=== PATIENT | female | born 1960 | race Caucasian/White ===

== ENCOUNTER 2021-11-11 13:18 | Inpatient (IN) ==
[2021-11-11] MEDS ORDERED: Midazolam 5 mg/5 ml VIAL 1 mg/ml 5 ml VIAL (5 mg) ONE (13:44)
[2021-11-11] MEDS ORDERED: fentaNYL 100 mcg/2 ml 50 MCG/ML VIAL ONE ×3 (13:44→16:40)
[2021-11-11] MEDS ORDERED: Heparin - STEMI 5,000 UNITS/ML 1 ml VIAL IV ONE ×2 (13:44→13:45)
[2021-11-11] MEDS ORDERED: Lidocaine 1% MPF 5 ML VIAL ONE (13:45)
[2021-11-11] MEDS ORDERED: niCARdipine 0.1MG/ML IVPREMIX 20 MG/200 ML BAG IV ONE (13:45)
[2021-11-11] MEDS ORDERED: nitroGLYCERIN DRIP 25,000 MCG/250 ML BTL ONE ×2 (13:45→14:02)
[2021-11-11] MEDS ORDERED: Heparin 1,000 UNIT/ML 10 ml (10,000 UNITS) CATHLAB/DIALYSIS ONE (13:45)
[2021-11-11] MEDS ORDERED: Iohexol 350 (CONTRAST) 200 ML MDV IV ONE ×3 (13:45→16:01)
[2021-11-11] MEDS ORDERED: Heparin 2 UNITS/ML 1000 mls 2,000 ML IV ONE (13:45)
[2021-11-11] MEDS ORDERED: NS 0.9% 1000 ml BAG 1,000 ML IV ONE (13:56)
[2021-11-11] MEDS ORDERED: nitroGLYCERIN DRIP 25,000 MCG/250 ML BTL IV SCH (14:00)
[2021-11-11 14:03] LABS: ABS Basophils 0.1 10^3/ul (0-0.2); ABS Eosinophils 0.2 10^3/ul (0-0.6); ABS Lymphocytes 2.3 10^3/ul (1.0-4.8); ABS Monocytes 0.9 10^3/ul (0-0.8); ABS Neutrophils 7.7 10^3/ul (1.5-7.7); Eosinophil % 1.7 %; Hematocrit 41 % (35-47); Hemoglobin 14.1 g/dL (12.0-16.0); Lymphocyte % 20.7 %; Mean Corpuscular HGB Conc 34 g/dL (31-36); Mean Corpuscular Hemoglobin 32 pg (27-31); Mean Corpuscular Volume 95 fL (80-97); Mean Platelet Volume 7.9 fL (7.4-10.4); Platelet Count 337 10^3/uL (150-450); Red Blood Count 4.34 10^6 /uL (3.70-4.87); Red Cell Distribution Width 15 % (10-15); White Blood Count 11.2 10^3/uL (3.5-10.8)
[2021-11-11 14:24] LABS: ALT 34 U/L (7-52); AST 123 U/L (13-39); Albumin 4.4 g/dL (3.2-5.2); Albumin/Globulin Ratio 1.7 (1-3); Alkaline Phosphatase 90 U/L (35-149); Anion Gap 9 mmol/L (2-11); Blood Urea Nitrogen 9 mg/dL (6-24); CO2 Carbon Dioxide 25 mmol/L (22-32); Calcium 9.5 mg/dL (8.6-10.3); Chloride 103 mmol/L (101-111); Globulin 2.6 g/dL (2-4); Glucose 100 mg/dL (70-100); LDL Cholesterol Direct 172 mg/dL; Potassium 4.1 mmol/L (3.5-5.0); Sodium 137 mmol/L (135-145); eGFR CKD-EPI 101.8 (>60)
[2021-11-11 14:29] LABS: High Sens Troponin Baseline > 24000 pg/mL (<15)
[2021-11-11] MEDS ORDERED: Perflutren Lipid Microsphere 3 ML VIAL ONE (14:33)
[2021-11-11 14:38] LABS: Activated Partial Thrombo Time 42.2 seconds (26.0-38.0); INR 1.05 (0.86-1.15)
[2021-11-11] MEDS ORDERED: Heparin DRIP 25,000 UNITS BAG 25,000 UNITS/500 ML BAG IV SCH (15:00)
[2021-11-11] MEDS ORDERED: Heparin 5000 UNITS/ML 1 mL VIAL IV SCH (15:00)
[2021-11-11 15:19] LABS: High Sensitivity Troponin 1 Hr > 24000 pg/mL (<15)
[2021-11-11] MEDS ORDERED: Heparin 2 UNITS/ML 1000 mls 1,000 ML IV ONE (15:51)
[2021-11-11] MEDS ORDERED: Metoprolol Tartrate 5 mg VIAL 5 ml VIAL (1 mg/ml) ONE (16:04)
[2021-11-11] MEDS ORDERED: Prasugrel 10 mg TAB (NF) ONE (16:50)
[2021-11-11] MEDS ORDERED: Ondansetron 4 mg VIAL 2 MG/ML 2 ml VIAL IV PRN (16:55)
[2021-11-11] MEDS: Nicotine PATCH 21 MG/24 HR PATCH TRANSDERM SCH (18:46)
[2021-11-11] MEDS ORDERED: Eptifibatide IV (Load dose) 2 MG/ML 10 ml VIAL IV ONE (19:54)
[2021-11-12 03:34] LABS: ABS Eosinophils 0.2 10^3/ul (0-0.6); ABS Lymphocytes 1.9 10^3/ul (1.0-4.8); ABS Monocytes 0.9 10^3/ul (0-0.8); ABS Neutrophils 5.5 10^3/ul (1.5-7.7); Eosinophil % 1.9 %; Hematocrit 36 % (35-47); Hemoglobin 12.2 g/dL (12.0-16.0); Lymphocyte % 22.7 %; Mean Corpuscular HGB Conc 34 g/dL (31-36); Mean Corpuscular Hemoglobin 32 pg (27-31); Mean Corpuscular Volume 94 fL (80-97); Mean Platelet Volume 7.7 fL (7.4-10.4); Platelet Count 294 10^3/uL (150-450); Red Blood Count 3.81 10^6 /uL (3.70-4.87); Red Cell Distribution Width 15 % (10-15); White Blood Count 8.5 10^3/uL (3.5-10.8)
[2021-11-12 04:11] LABS: Albumin 3.5 g/dL (3.2-5.2); Calcium 8.6 mg/dL (8.6-10.3); Magnesium 1.9 mg/dL (1.9-2.7); Potassium 3.8 mmol/L (3.5-5.0); Total Bilirubin 0.6 mg/dL (0.2-1.0)
[2021-11-12 04:17] LABS: Albumin/Globulin Ratio 1.6 (1-3); Globulin 2.2 g/dL (2-4); HDL Cholesterol 41.7 mg/dL; Total Protein 5.7 g/dL (6.4-8.9); eGFR CKD-EPI 105.5 (>60)
[2021-11-12] MEDS ORDERED: KCL 20 MEQ/100 ML IVPREMIX 20 MEQ/100 ML BAG IV ONE (04:45)
[2021-11-12] MEDS ORDERED: Magnesium Sulfate 2 gm BAG 2 GM/50 ML BAG IVPB ONE (04:45)
[2021-11-12] MEDS ORDERED: Potassium Chlor 20 meq TAB.ER PO ONE (05:11)
[2021-11-12] MEDS ORDERED: Nicotine PATCH 21 MG/24 HR PATCH TRANSDERM SCH (08:00)
[2021-11-12] MEDS: Nicotine PATCH 21 MG/24 HR PATCH TRANSDERM SCH (08:12)
[2021-11-12] MEDS ORDERED: Fluticasone-Salmeterol 250-50 DISKUS NF INH SCH (09:00)
[2021-11-12] MEDS ORDERED: CMCS: Prasugrel 10 mg TAB (NF) PO SCH (09:00)
[2021-11-12] MEDS ORDERED: Albuterol HFA INHALER 8 gm MDI INH PRN (09:30)
[2021-11-12] MEDS: Tiotropium Brom/Olodaterol MDI INH SCH (12:16)
[2021-11-12] MEDS ORDERED: Enoxaparin 40 MG/0.4 ML SYR SUBCUT SCH (14:00)
[2021-11-12] MEDS ORDERED: Polyethylene Glycol 3350 17 GM PACKET PO PRN (15:47)
[2021-11-13 04:51] LABS: ABS Basophils 0.1 10^3/ul (0-0.2); ABS Eosinophils 0.2 10^3/ul (0-0.6); ABS Lymphocytes 2.6 10^3/ul (1.0-4.8); ABS Monocytes 1.1 10^3/ul (0-0.8); ABS Neutrophils 3.6 10^3/ul (1.5-7.7); Eosinophil % 2.9 %; Hematocrit 37 % (35-47); Hemoglobin 12.8 g/dL (12.0-16.0); Lymphocyte % 34.7 %; Mean Corpuscular HGB Conc 34 g/dL (31-36); Mean Corpuscular Hemoglobin 32 pg (27-31); Mean Corpuscular Volume 95 fL (80-97); Mean Platelet Volume 7.8 fL (7.4-10.4); Nucleated Red Blood Cells % 0.1; Platelet Count 262 10^3/uL (150-450); Red Blood Count 3.95 10^6 /uL (3.70-4.87); Red Cell Distribution Width 15 % (10-15); White Blood Count 7.5 10^3/uL (3.5-10.8)
[2021-11-13 05:12] LABS: Calcium 8.6 mg/dL (8.6-10.3); Magnesium 2.1 mg/dL (1.9-2.7); Potassium 4.7 mmol/L (3.5-5.0)
[2021-11-13 07:43] VITALS: BP 149/68
[2021-11-13] MEDS ORDERED: Nicotine PATCH 21 MG/24 HR PATCH TRANSDERM SCH (08:00)
[2021-11-13] MEDS: Tiotropium Brom/Olodaterol MDI INH SCH (08:01)
== END 2021-11-13 11:00 | disposition home or self-care (01) | DRG 246 ==
LOC: ED 13:18 → ICU 14:58 → EDHOLD 16:55 → ICU 17:45 → MEDTELE 11-12 14:35
PROVIDERS: ADMIT Internal Medicine; ATTEND Internal Medicine

== ENCOUNTER 2023-11-25 11:37 | Inpatient (IN) ==
[2023-11-25 12:04] LABS: ABS Basophils 0.1 10^3/uL (0.0-0.1); ABS Eosinophils 0.3 10^3/uL (0.0-0.5); ABS Lymphocytes 2.3 10^3/uL (1.0-4.8); ABS Monocytes 0.6 10^3/uL (0.0-0.9); ABS Neutrophils 5.5 10^3/uL (1.5-7.6); ABS Nucleated RBC 0.01 10^3/ul; Eosinophil % 3.8 %; Hematocrit 38.5 % (35-45); Hemoglobin 12.8 g/dL (11.5-14.3); Lymphocyte % 25.9 %; Mean Corpuscular Hemoglobin 30.9 pg (27-33); Mean Corpuscular Hgb Conc 33.2 g/dL (31-36); Mean Corpuscular Volume 93.1 fL (80-97); Mean Platelet Volume 7.9 fL (7.5-11.2); Nucleated Red Blood Cells % 0.1 %/100WBC (0.0-0.8); Platelet Count 370 10^3/uL (150-450); Red Blood Count 4.13 10^6/uL (3.63-4.92); Red Cell Distribution Width 15.5 % (12-17); White Blood Count 8.9 10^3/uL (3.8-11.8)
[2023-11-25 12:12] LABS: INR 1.25 (0.83-1.13)
[2023-11-25 12:38] LABS: Albumin 4.5 g/dL (3.2-5.2); Albumin/Globulin Ratio 1.9 (1-3); Calcium 9.4 mg/dL (8.6-10.3); Creatinine, Serum 0.7 mg/dL (0.51-0.95); Globulin 2.4 g/dL (2-4); Total Bilirubin 0.5 mg/dL (0.2-1.0); Total Protein 6.9 g/dL (6.4-8.9); eGFR CKD-EPI 96.5 (>60)
[2023-11-25 13:38] LABS: High Sensitivity Troponin 1 Hr 1562 pg/mL (<15)
[2023-11-25] MEDS: Iohexol 350 (CONTRAST) 500 ML MDV IV ONE (14:10)
[2023-11-25] MEDS: Metoprolol Tartrate 5 mg VIAL 5 ml VIAL (1 mg/ml) IV ONE (15:05)
[2023-11-25] MEDS ORDERED: Sulfur Hexaflouride MICROSPHR 25 MG VIAL ONE (15:29)
[2023-11-25 15:31] LABS: Activated Partial Thrombo Time 36.3 seconds (26.0-38.0)
[2023-11-25] MEDS: Heparin 5000 UNITS/ML 1 mL VIAL IV SCH (15:42)
[2023-11-25] MEDS: Heparin DRIP 25,000 UNITS BAG 25,000 UNITS/250 ML BAG IV SCH (15:44)
[2023-11-25 16:01] LABS: HDL Cholesterol 40.4 mg/dL
[2023-11-25 17:18] LABS: ABS Eosinophils 0.4 10^3/uL (0.0-0.5); ABS Lymphocytes 3.1 10^3/uL (1.0-4.8); ABS Monocytes 0.3 10^3/uL (0.0-0.9); ABS Neutrophils 4.4 10^3/uL (1.5-7.6); ABS Nucleated RBC 0.01 10^3/ul; Eosinophil % 4.3 %; Hematocrit 38.5 % (35-45); Hemoglobin 12.9 g/dL (11.5-14.3); Lymphocyte % 37.5 %; Mean Corpuscular Hemoglobin 31.1 pg (27-33); Mean Corpuscular Hgb Conc 33.4 g/dL (31-36); Mean Corpuscular Volume 93.2 fL (80-97); Mean Platelet Volume 8.1 fL (7.5-11.2); Nucleated Red Blood Cells % 0.1 %/100WBC (0.0-0.8); Platelet Count 348 10^3/uL (150-450); Red Blood Count 4.13 10^6/uL (3.63-4.92); Red Cell Distribution Width 15.1 % (12-17); White Blood Count 8.2 10^3/uL (3.8-11.8)
[2023-11-25] MEDS: Albuterol/Ipratropium NEB.SOL (2.5/0.5 MG) 3 ML NEB.SOLN INH SCH (19:41)
[2023-11-25] MEDS: Nicotine PATCH 7 MG/24 HR PATCH TRANSDERM SCH (19:52)
[2023-11-25 20:41] LABS: Creatinine, Serum 0.68 mg/dL (0.51-0.95); eGFR CKD-EPI 97.2 (>60)
[2023-11-25] MEDS: Bismuth Subsalicylate (BTL) 525 MG/30 ML (BULK BTL) PO ONE (21:40)
[2023-11-26] MEDS: Albuterol/Ipratropium NEB.SOL (2.5/0.5 MG) 3 ML NEB.SOLN ONE (03:53)
[2023-11-26 07:07] LABS: ABS Basophils 0.1 10^3/uL (0.0-0.1); ABS Eosinophils 0.3 10^3/uL (0.0-0.5); ABS Monocytes 0.5 10^3/uL (0.0-0.9); ABS Neutrophils 3.5 10^3/uL (1.5-7.6); Eosinophil % 4.5 %; Hematocrit 36.3 % (35-45); Hemoglobin 12.1 g/dL (11.5-14.3); Lymphocyte % 31.4 %; Mean Corpuscular Hemoglobin 31.1 pg (27-33); Mean Corpuscular Hgb Conc 33.4 g/dL (31-36); Mean Corpuscular Volume 93.1 fL (80-97); Mean Platelet Volume 8.3 fL (7.5-11.2); Nucleated Red Blood Cells % 0.1 %/100WBC (0.0-0.8); Platelet Count 305 10^3/uL (150-450); Red Cell Distribution Width 15.2 % (12-17); White Blood Count 6.3 10^3/uL (3.8-11.8)
[2023-11-26 07:33] LABS: Calcium 8.8 mg/dL (8.6-10.3); Creatinine, Serum 0.65 mg/dL (0.51-0.95); Magnesium 2.2 mg/dL (1.9-2.7); Potassium 4.4 mmol/L (3.5-5.0); eGFR CKD-EPI 98.3 (>60)
[2023-11-26] MEDS: HYDROcodone/ACET. 7.5/325 LIQ 15 ML UDC PO PRN (08:53)
[2023-11-26] MEDS: Nicotine GUM 2MG FRUIT FLAVOR PO PRN (08:53)
[2023-11-26] MEDS: NS 0.9% 1000 ml BAG 1,000 ML IV SCH ×2 (10:40→16:10)
[2023-11-26 11:19] LABS: ABS Basophils 0.1 10^3/uL (0.0-0.1); ABS Eosinophils 0.3 10^3/uL (0.0-0.5); ABS Lymphocytes 1.9 10^3/uL (1.0-4.8); ABS Monocytes 0.4 10^3/uL (0.0-0.9); ABS Neutrophils 3.8 10^3/uL (1.5-7.6); ABS Nucleated RBC 0.01 10^3/ul; Eosinophil % 4.2 %; Hematocrit 36.6 % (35-45); Hemoglobin 12.2 g/dL (11.5-14.3); Lymphocyte % 28.9 %; Mean Corpuscular Hgb Conc 33.4 g/dL (31-36); Mean Corpuscular Volume 92.6 fL (80-97); Mean Platelet Volume 7.9 fL (7.5-11.2); Nucleated Red Blood Cells % 0.1 %/100WBC (0.0-0.8); Platelet Count 352 10^3/uL (150-450); Red Blood Count 3.95 10^6/uL (3.63-4.92); White Blood Count 6.5 10^3/uL (3.8-11.8)
[2023-11-26] MEDS ORDERED: fentaNYL 100 mcg/2 ml 50 MCG/ML VIAL ONE ×2 (11:23→15:10)
[2023-11-26] MEDS ORDERED: Midazolam 5 mg/5 ml VIAL 1 mg/ml 5 ml VIAL (5 mg) ONE (11:23)
[2023-11-26 11:29] LABS: Activated Partial Thrombo Time 46.8 seconds (26.0-38.0); INR 1.22 (0.83-1.13)
[2023-11-26 12:07] LABS: TSH Ultra Thyroid Stim Horm 1.67 mcIU/mL (0.34-5.60)
[2023-11-26 12:09] LABS: Free T4 0.82 ng/dL (0.61-1.12)
[2023-11-26 12:11] LABS: Free T3 3.23 pg/mL (2.5-3.9)
[2023-11-26 12:18] LABS: Vitamin B12 1035 pg/mL (180-914)
[2023-11-26 12:19] LABS: Folate > 20.00 ng/mL (5.90-24.80)
[2023-11-26] MEDS ORDERED: VERAPAMIL 2.5 MG/ML 2 ML VIAL ** 5 mg/2 ml ONE (12:48)
[2023-11-26] MEDS ORDERED: Heparin 1,000 UNIT/ML 10 ml (10,000 UNITS) CATHLAB/DIALYSIS ONE (12:48)
[2023-11-26] MEDS ORDERED: Lidocaine 1% MPF 5 ML VIAL ONE (12:49)
[2023-11-26] MEDS ORDERED: nitroGLYCERIN DRIP 25,000 MCG/250 ML BTL ONE (12:49)
[2023-11-26] MEDS ORDERED: Heparin 2 UNITS/ML 1000 mls 2,000 ML IV ONE (12:49)
[2023-11-26] MEDS ORDERED: Iohexol 350 (CONTRAST) 100 ML PAK IV ONE (12:49)
[2023-11-26 13:14] LABS: Anion Gap 10 mmol/L (2-16); Blood Urea Nitrogen 10 mg/dL (6-24); CO2 Carbon Dioxide 23 mmol/L (22-32); Calcium 9.2 mg/dL (8.6-10.3); Chloride 106 mmol/L (101-111); Creatinine, Serum 0.79 mg/dL (0.51-0.95); Glucose 119 mg/dL (70-100); Potassium 4.3 mmol/L (3.5-5.0); Sodium 139 mmol/L (135-145); eGFR CKD-EPI 83.5 (>60)
[2023-11-26] MEDS: Albuterol/Ipratropium NEB.SOL (2.5/0.5 MG) 3 ML NEB.SOLN INH PRN (14:16)
[2023-11-26] MEDS ORDERED: Furosemide 20 mg/2 ml IV VIAL ONE (15:04)
[2023-11-26] MEDS: Furosemide 20 mg/2 ml IV VIAL IV ONE (15:17)
[2023-11-26] MEDS: Enoxaparin 40 MG/0.4 ML SYR SUBCUT SCH (17:22)
[2023-11-26] MEDS: Bismuth Subsalicylate (BTL) 525 MG/30 ML (BULK BTL) PO PRN (21:51)
[2023-11-27 06:43] LABS: ABS Basophils 0.1 10^3/uL (0.0-0.1); ABS Eosinophils 0.3 10^3/uL (0.0-0.5); ABS Lymphocytes 1.7 10^3/uL (1.0-4.8); ABS Monocytes 0.5 10^3/uL (0.0-0.9); ABS Neutrophils 3.1 10^3/uL (1.5-7.6); Hematocrit 35.7 % (35-45); Hemoglobin 12.1 g/dL (11.5-14.3); Lymphocyte % 29.6 %; Mean Corpuscular Hemoglobin 31.6 pg (27-33); Mean Platelet Volume 8.1 fL (7.5-11.2); Nucleated Red Blood Cells % 0.1 %/100WBC (0.0-0.8); Platelet Count 302 10^3/uL (150-450); Red Blood Count 3.84 10^6/uL (3.63-4.92); Red Cell Distribution Width 15.1 % (12-17); White Blood Count 5.7 10^3/uL (3.8-11.8)
[2023-11-27 07:14] LABS: Creatinine, Serum 0.6 mg/dL (0.51-0.95); eGFR CKD-EPI 100.2 (>60)
[2023-11-27 10:38] VITALS: BP 156/68
== END 2023-11-27 13:05 | disposition home or self-care (01) | DRG 281 ==
LOC: EDHOLD 11:37 → ED 11:37 → MEDTELE 16:32
PROVIDERS: ADMIT Hospitalist; ATTEND Hospitalist